=== PATIENT | female | born 1980 | race Caucasian/White ===

== ENCOUNTER → 2016-04-10 | Outpatient (REF) | payer OTHER | END | disposition home or self-care (01) | LOC: M SFHCLERA 11:58 | PROVIDERS: ATTEND Physician Assistant Medical | DX: J02.9 Acute pharyngitis, unspecified (principal) ==

== ENCOUNTER → 2016-04-29 | Outpatient (CLI) | payer OTHER ==
[2016-04-29 18:23] LABS: MEAN CORPUSCULAR HEMOGLOBIN 31.2 pg (27.0-33.0); MEAN CORPUSCULAR VOLUME 94.4 fl (80.0-96.0); RED CELL DISTRIBUTION WIDTH 13.2 % (11.5-14.5)
== END ==
LOC: M WUC 11:56
PROVIDERS: ATTEND Obstetrics & Gynecology
DX: Z34.82 Encounter for supervision of other normal pregnancy, second trimester (principal)

== ENCOUNTER → 2016-05-12 | Outpatient (CLI) | payer OTHER ==
--- NOTE | 2016-05-12 13:14 | REP ---
Clinical: Placental location. Technique: Transabdominal and transvaginal obstetrical ultrasound. Comparison: None. Findings: Single live intrauterine identified in cephalic presentation. heart rate equals 144 beats per minute. Gestational age by LMP equals 29 weeks 1 day with GEOFF 07/27/2016. Amniotic fluid index equals 11.0 cm. Placenta is identified posteriorly and grade zero without evidence for placenta previa or abruption. Placental tip is approximately 2.5 cm from the internal os. The os appears closed although a trace amount of fluid is appreciated with in the cervical canal. The cervix itself measures approximately 3.3 cm in length on transvaginal imaging during Valsalva. Impression: Posterior placenta approximately 2.5 cm from the internal os. Trace cervical fluid is appreciated. Cervix measures 3.3 cm length on Valsalva. Signed by Miko Shaw MD 05/12/2016 01:07 P
== END ==
LOC: M SMT 10:51
PROVIDERS: ATTEND Obstetrics & Gynecology
DX: Z36 Encounter for antenatal screening of mother (principal); Z3A.29 29 weeks gestation of pregnancy

== ENCOUNTER → 2016-06-27 | Outpatient (REF) | payer OTHER | LOC: M LAB REF 12:57 | PROVIDERS: ATTEND Obstetrics & Gynecology | DX: Z34.83 Encounter for supervision of other normal pregnancy, third trimester (principal); Z36 Encounter for antenatal screening of mother; Z3A.00 Weeks of gestation of pregnancy not specified ==

== ENCOUNTER 2016-07-27 10:02 | Inpatient (IN) | payer OTHER ==
[~2016-07-27] VITALS: Ht 157.5 cm; Wt 68.0 kg
[2016-07-27] MEDS ORDERED: PRENTAB9 PO (10:10)
[2016-07-27] MEDS ORDERED: TUMS500C PO (10:10)
[2016-07-27 10:14] VITALS: BP 128/83
[2016-07-27] MEDS ORDERED: PENICILLIN G POTASSIUM IV 5 MU in D5W MINI-BAG PLUS 100 ML IV STA (10:47)
[2016-07-27] MEDS ORDERED: LR 1,000 ML IV SCH (10:47)
[2016-07-27] MEDS ORDERED: LACTATED RINGER'S 1000 ML IV STA (10:47)
[2016-07-27 11:06] LABS: MEAN CORPUSCULAR HEMOGLOBIN 32.3 pg (27.0-33.0); MEAN CORPUSCULAR HGB CONC 34.9 g/dl (32.0-36.5); MEAN CORPUSCULAR VOLUME 92.4 fl (80.0-96.0); RED CELL DISTRIBUTION WIDTH 12.5 % (11.5-14.5); WHITE BLOOD COUNT 11.6 K/mm3 (4.0-10.0)
[2016-07-27] MEDS ORDERED: FENTANYL 2MCG/ML ROPIVACAINE 0.2% IN 0.9% NACL 200ML IVBAG As Ordered ONE (11:15)
[2016-07-27] MEDS ORDERED: OXYTOCIN 30 UNITS IN 0.9% NaCl 500ML IV BAG (J2590) As Ordered ONE (11:37)
--- NOTE | 2016-07-27 12:03 | HPE ---
DATE OF ADMISSION: 07/27/2016 July is a 36-year-old, 4, para 1-0-2-1, at 40-1/7 weeks gestation with an expected date of confinement (EDC) of 07/26/2016 based on first trimester ultrasound. She presents to labor and delivery today with a report of spontaneous rupture of membranes for a small amount of fluid at 0545. She does report contractions starting essentially within 30 minutes of rupture and they have continued to get closer together and more uncomfortable. She does report some scant bloody show and continued leakage of fluid. The fetus has been active. care was initiated at an [facility] care provider in [place] with transfer of care to [facility] at 25 weeks gestation. course was complicated by advanced maternal age, A1 gestational diabetes with excellent diet control and GBS positive. OBSTETRICAL HISTORY: 2000 - elective termination of . July 2014 - At 39-2/7 weeks, a 7 pound 7 ounce male, spontaneous vaginal delivery, with gestational diabetes A1. July 2015 - Spontaneous . OB LABS: Blood type is O+. Antibody screen negative. Pap normal. Rubella immune. VDRL nonreactive. Urine culture negative. Hepatitis B surface antigen negative. HIV negative. Hepatitis C antibody nonreactive. Gonorrhea and chlamydia negative. Hemoglobin A1c in December 2015 of 5.1. She underwent the first trimester screening for aneuploidy risks and noted to have low risk with a male fetus. Third trimester gestational diabetic screening 144 with excellent diet control throughout her . GBS positive. PAST MEDICAL HISTORY: 1. Gestational diabetes. 2. Seasonal allergies. 3. Abnormal Pap. 4. Advanced maternal age. 5. Uncertain if she has had varicella. FAMILY HISTORY: Diabetes. SURGERIES: Dilation and curettage (D and C), wisdom tooth removal. SOCIAL HISTORY: The patient is and currently a nonsmoker. Denies alcohol or drug use. Denies history of sexually transmitted diseases (STDs). Denies history of abuse - physical, sexual and emotional. OBJECTIVE: Temperature 99.2, pulse 90, respirations 16, blood pressure 128/83. She is alert and oriented times three. She is tense and wincing and moving with her contractions. heart rate 150 with marked variability, positive accelerations, positive variable decelerations observed. She is letitia approximately every 2-4 minutes. Some palpate mild, some palpate moderate. Her abdomen is gravid, cephalic presentation, with estimated weight of 8 pounds. Sterile Speculum Exam: She is grossly ruptured. Sterile Vaginal Exam: 4 cm dilated. 90% effaced, -2 station. ASSESSMENT: 1. Intrauterine at 40-1/7 weeks. 2. heart rate category one. 3. Spontaneous rupture of membranes (SROM). 4. Labor. PLAN: Admit patient to labor and delivery. Labs. Out of bed ad nata. Clear liquid diet. Start antibiotic for GBS prophylaxis. The patient does desire an epidural and so an IV fluid bolus has been ordered. I do anticipate continued labor progress and a normal spontaneous vaginal delivery.
[2016-07-27] MEDS ORDERED: METHYLERGONOVINE MALEATE 0.2 MG TAB PO PRN (12:15)
[2016-07-27] MEDS ORDERED: RHOGAM 300 MCG (1500 IU) INJ (J2790) IM SCH (12:15)
[2016-07-27] MEDS ORDERED: ANUSOL HC CREAM 30GM TOP PRN (12:15)
[2016-07-27] MEDS ORDERED: DIBUCAINE 1% OINTMENT 30GM TOP PRN (12:15)
[2016-07-27] MEDS ORDERED: MEASLES,MUMPS,RUBELLA VACCINE INJ (MMR-II) (90707) SC SCH (12:15)
[2016-07-27] MEDS ORDERED: LIDOCAINE 1% MDV INJ 50 ML VIAL INFIL ONE (12:30)
[2016-07-27] MEDS ORDERED: OXYTOCIN DRIP 30 UNITS in APPROPRIATE DILUENT 1 EA IV SCH (12:30)
[2016-07-27] MEDS: IBUPROFEN 800 MG TAB PO PRN ×2 (12:41→20:47)
--- NOTE | 2016-07-27 13:31 | DN ---
DATE: 07/27/2016 July is a 36-year-old, 4, para 2-0-2-2 now, who was admitted to labor and delivery in active labor. She progressed to full dilation at 1126. She pushed to a normal spontaneous vaginal delivery of a live male in occiput anterior (OA) position with restitution to right occiput transverse (ROT) position at 1134. There was no nuchal cord. The shoulders delivered with gentle downward guidance and the corpus immediately followed. The was placed on maternal abdomen crying and active. His mouth and nares were bulb suctioned. The cord was clamped times two and cut by the father of the baby. A spontaneous expulsion of an intact placenta with three-vessel cord by Cueto mechanism was at 1139. Uterine hemostasis was achieved with uterine fundal massage and IV Pitocin rapid infusion. Estimated blood loss 350 mL. Perineum and vagina inspected and noted have a second-degree midline laceration. The laceration was infiltrated with 1% lidocaine and repaired with #3-0 Rapide in the usual fashion. The male weighed 3566 grams, 7 pounds 14 ounces, Apgars 8 and 9. Mom plans to breastfeed her son. The family is undecided as to what to name this baby. At the close of delivery, lap counts, needle counts and instrument counts were correct and verified.
[2016-07-27] MEDS ORDERED: PENICILLIN G POTASSIUM IV 2.5 MU in D5W 100 ML IV SCH (15:30)
[2016-07-27] MEDS: ACETAMINOPHEN 500 MG TAB PO PRN (16:25)
[2016-07-27 18:00] VITALS: BP 120/75
[2016-07-27] MEDS: DOCUSATE SODIUM 100 MG CAP PO PRN (20:47)
[2016-07-28] MEDS: ACETAMINOPHEN 500 MG TAB PO PRN ×2 (00:49→11:44)
[2016-07-28 05:36] VITALS: BP 109/56
[2016-07-28] MEDS: IBUPROFEN 800 MG TAB PO PRN ×2 (06:37→18:09)
[2016-07-28] MEDS ORDERED: LIDOCAINE 1% MDV INJ 50 ML VIAL As Ordered ONE (08:12)
[2016-07-28] MEDS: PRENATAL VITAMIN TAB PO SCH (08:51)
[2016-07-28 18:00] VITALS: BP 104/62
[2016-07-29] MEDS: IBUPROFEN 800 MG TAB PO PRN (05:10)
[2016-07-29 05:48] VITALS: BP 114/75
[2016-07-29] MEDS: PRENATAL VITAMIN TAB PO SCH (08:32)
[2016-07-29] MEDS: DOCUSATE SODIUM 100 MG CAP PO PRN (08:33)
[2016-07-29] MEDS ORDERED: PRENTAB9 PO (09:01)
[2016-07-29] MEDS ORDERED: IBUP-1114 PO (09:03)
== END 2016-07-29 15:00 | disposition home or self-care (01) | DRG 775 ==
LOC: M LDO 10:02 → M LDI 10:45 → M OBS 16:00
PROVIDERS: ADMIT Advanced Practice Midwife; ATTEND Advanced Practice Midwife
PROC: 10E0XZZ Delivery of Products of Conception, External Approach (ICD-10-PCS; principal; 2016-07-27)
PROC: 0KQM0ZZ Repair Perineum Muscle, Open Approach (ICD-10-PCS; 2016-07-27)
DX: O48.0 Post-term pregnancy (principal); O24.420 Gestational diabetes mellitus in childbirth, diet controlled; Z3A.40 40 weeks gestation of pregnancy; O99.824 Streptococcus B carrier state complicating childbirth; O70.1 Second degree perineal laceration during delivery; Z37.0 Single live birth